=== PATIENT | male | born 1955 | race Caucasian/White ===

== ENCOUNTER 2017-08-13 16:20 | Emergency (ER) | payer OTHER ==
[~2017-08-13] VITALS: Ht 175.3 cm; Wt 91.4 kg
[~2017-08-13 16:20] MED LIST: NAPROSYN500 MG PO; ROBAXIN500 MG PO; ULTRAM50 MG PO
[2017-08-13 18:29] VITALS: BP 144/87
== END 2017-08-13 18:30 | disposition home or self-care (01) ==
LOC: EME 16:20 → EXP 16:20
PROC: 0HQFXZZ Repair Right Hand Skin, External Approach (ICD-10-PCS; principal; 2017-08-13)
DX: S61.210A Laceration without foreign body of right index finger without damage to nail, initial encounter (principal); S61.512A Laceration without foreign body of left wrist, initial encounter; W26.0XXA Contact with knife, initial encounter; Y99.0 Civilian activity done for income or pay
CPT/HCPCS: 99281; 99284; S0020